=== PATIENT | female | born 1980 | race African-American/Black ===

== ENCOUNTER 2017-02-25 19:56 | Emergency (ER) | payer OTHER ==
[~2017-02-25] VITALS: Ht 157.5 cm; Wt 56.2 kg
[2017-02-25 20:04] VITALS: BP 133/66
--- NOTE | 2017-02-25 21:50 | NUR ---
PATIENT AMBULATED TO ER BED 8.
--- NOTE | 2017-02-25 21:50 | NUR ---
PATIENT PRESENTS TO ED WITH C/O LEFT EYE PAIN X 1 WEEK. PT STATES THERE WAS NO TRAUMA TO THE EYE BUT CONTANT DRY EYE SYMPTOMS. PT DENIES N/V/D; SKIN IS PINK/WARM/DRY; AAOX4 WITH EVEN AND STEADY GAIT; LUNGS CLEAR BL; HR EVEN AND REGULAR; PT DENIES ANY FEVER, CP, SOB, OR COUGH AT THIS TIME; PATIENT STATES PAIN OF 8/10 AT THIS TIME; VSS; PATIENT POSITIONED FOR COMFORT; HOB ELEVATED; BEDRAILS UP X2; BED DOWN. ER MD MADE AWARE OF PT STATUS.
--- NOTE | 2017-02-25 21:52 | NUR ---
PATIENT BEING EVALUATED BY DR. BURGOS.
[2017-02-25] MEDS ORDERED: GENTAMICIN OP 0.3% 10.5 MG/3.5 GM TUBE OP ONE (22:00)
[2017-02-25] MEDS ORDERED: ACETAMINOPHEN EXTRA STRENGTH 500 MG TAB PO ONE (22:00)
--- NOTE | 2017-02-25 22:49 | NUR ---
Patient discharged with v/s stable. Written and verbal after care instructions given and explained. Patient alert, oriented and verbalized understanding of instructions. Ambulatory with steady gait. All questions addressed prior to discharge. ID band removed. Patient advised to follow up with PMD. Rx of GARAMYCIN 0.3% DROP given. Patient educated on indication of medication including possible reaction and side effects. Opportunity to ask questions provided and answered.
[2017-02-25 22:50] VITALS: BP 127/72
== END 2017-02-25 22:49 | disposition home or self-care (01) ==
LOC: MED 19:56
DX: H10.9 Unspecified conjunctivitis (principal); E03.9 Hypothyroidism, unspecified; R03.0 Elevated blood-pressure reading, without diagnosis of hypertension; Z88.8 Allergy status to other drugs, medicaments and biological substances; Z88.0 Allergy status to penicillin

== ENCOUNTER 2021-12-27 10:33 | Emergency (ER) | payer OTHER ==
[~2021-12-27] VITALS: Ht 157.5 cm; Wt 69.9 kg
[2021-12-27 10:36] VITALS: BP 150/99
--- NOTE | 2021-12-27 10:43 | NUR ---
pt ambulated to bed 12 with even and steady gait
[2021-12-27] MEDS ORDERED: diphenhydrAMINE 50 MG/ML VIAL IM ONE (11:10)
[2021-12-27] MEDS ORDERED: fentaNYL citrate 0.05 MG/ML VIAL IM ONE (11:10)
[2021-12-27 11:34] VITALS: BP 143/91
--- NOTE | 2021-12-27 11:43 | NUR ---
Dr. Perez at bedside for MSE
[2021-12-27 12:03] LABS: HEMOGLOBIN 10.1 g/dL (12.0-16.0)
[2021-12-27 12:08] LABS: BASOPHILS % (AUTO) 0.3 % (0.0-2.0); EOSINOPHILS # (AUTO) 0.1 K/uL (0-0.4); EOSINOPHILS % (AUTO) 1.5 % (0.0-4.0); LYMPHOCYTES # (AUTO) 0.9 K/uL (2.5-16.5); LYMPHOCYTES % (AUTO) 14.5 % (20.5-51.1); MEAN CORPUSCULAR HEMOGLOBIN 25 pg (27-31); MEAN CORPUSCULAR HGB CONC 33 g/dL (33-37); MEAN CORPUSCULAR VOLUME 76.2 fL (80-94); MONOCYTES # (AUTO) 0.4 K/uL (0.8-1.0); MONOCYTES % (AUTO) 7.5 % (1.7-9.3); NEUTROPHILS # (AUTO) 4.5 K/uL (1.8-7.7); NEUTROPHILS % (AUTO) 76.2 % (42.2-75.2); PLATELET COUNT (AUTO) 97 K/uL (140-450); RED BLOOD CELL COUNT(AUTO) 4.06 MIL/uL (4.20-5.40); RED CELL DISTRIBUTION WIDTH 15.1 % (11.6-13.7)
[2021-12-27] MEDS ORDERED: HYDROcodone/APAP 5/325 MG 1 TAB TAB PO ONE (13:00)
[2021-12-27 13:02] LABS: ALBUMIN 3.7 g/dL (3.4-5.0); ANION GAP 14.9 (8-16); CARBON DIOXIDE 26.6 mmol/L (21-32); CREATININE 0.8 mg/dL (0.6-1.3); POTASSIUM 3.5 mmol/L (3.5-5.1); TOTAL BILIRUBIN 0.5 mg/dL (0.0-1.0)
[2021-12-27] MEDS ORDERED: ACET-8386 PO (13:30)
--- NOTE | 2021-12-27 13:44 | NUR ---
d/c with VSS. d/c education given. opportunity to ask questions given and answered. rxof norco given.
== END 2021-12-27 13:44 | disposition home or self-care (01) ==
LOC: MED 10:33
DX: K85.90 Acute pancreatitis without necrosis or infection, unspecified (principal); E03.9 Hypothyroidism, unspecified; Z90.49 Acquired absence of other specified parts of digestive tract; Z88.0 Allergy status to penicillin; Z88.5 Allergy status to narcotic agent; Z88.6 Allergy status to analgesic agent
CPT/HCPCS: 36415; 74176; 80053; 81002; 81025; 82150; 83690; 85025; 96372; 99284; J1200; J3010